=== PATIENT | female | born 1980 | race Caucasian/White ===

== ENCOUNTER 2016-09-10 18:01 | Emergency (ER) | payer MEDICAID, OTHER ==
[~2016-09-10] VITALS: Ht 172.7 cm; Wt 72.9 kg
[2016-09-10] MEDS ORDERED: LORazepam 1MG TABLET PO ONE (19:00)
[2016-09-10 19:34] LABS: BLOOD UREA NITROGEN 17 mg/dL (7-18)
[2016-09-10 19:58] VITALS: BP 128/74
[2016-09-10] MEDS ORDERED: LORazepam 1MG TABLET ONE (20:05)
== END 2016-09-10 21:07 | disposition home or self-care (01) ==
LOC: ED 19:00
DX: F41.1 Generalized anxiety disorder (principal); M51.26 Other intervertebral disc displacement, lumbar region; F17.200 Nicotine dependence, unspecified, uncomplicated
CPT/HCPCS: 36415; 71020; 80048; 81003; 82040; 85025; 93005; 99285

== ENCOUNTER 2016-11-24 08:32 | Emergency (ER) | payer MEDICAID ==
[~2016-11-24] VITALS: Ht 170.2 cm; Wt 74.3 kg
[2016-11-24] MEDS ORDERED: PROMETHAZINE 25 MG/ML, 1ML ONE ×2 (09:18→09:25)
[2016-11-24] MEDS ORDERED: ONDANSETRON ODT 4 MG ONE (09:18)
[2016-11-24] MEDS ORDERED: KETOROLAC 30 MG/1 ML ONE ×2 (09:18→09:25)
[2016-11-24] MEDS ORDERED: ONDANSETRON ODT 4 MG PO ONE (09:30)
[2016-11-24] MEDS ORDERED: KETOROLAC 60 MG/2 ML IM ONE (09:30)
[2016-11-24] MEDS ORDERED: PROMETHAZINE 25 MG/ML, 1ML IM ONE (09:30)
[2016-11-24 09:35] LABS: HEMOGLOBIN 12.2 g/dL (11.7-16.4); WHITE BLOOD COUNT 10.5 x10^3/uL (3.4-10)
[2016-11-24 09:46] LABS: ASPARTATE AMINO TRANSFERASE 11 U/L (15-37); BLOOD UREA NITROGEN 8 mg/dL (7-18)
[2016-11-24] MEDS ORDERED: OXYC-306 PO (09:49)
[2016-11-24] MEDS ORDERED: ALPR-475 PO (09:49)
[2016-11-24] MEDS ORDERED: LORazepam 1MG TABLET ONE (10:13)
[2016-11-24] MEDS ORDERED: LORazepam 1MG TABLET PO ONE (10:30)
[2016-11-24 13:00] VITALS: BP 118/75
== END 2016-11-24 13:03 | disposition home or self-care (01) ==
LOC: ED 09:29
DX: R11.2 Nausea with vomiting, unspecified (principal); F11.23 Opioid dependence with withdrawal; F41.1 Generalized anxiety disorder; F17.200 Nicotine dependence, unspecified, uncomplicated
CPT/HCPCS: 36415; 74020; 80053; 81003; 83690; 84703; 85025; 96372; 99285; J1885; J2550; Q0162